=== PATIENT | female | born 1990 | race Caucasian/White ===

== ENCOUNTER 2017-07-29 21:00 | Inpatient (IN) | payer OTHER ==
[2017-07-29 23:37] LABS: ADD MAN DIFF? NO
[2017-07-29 23:40] LABS: WHITE BLOOD COUNT 9.7 10^3/ul (4.8-10.8)
[2017-07-29 23:40] LABS: BASOPHILS % 0.2 % (0.0-2.0); EOSINOPHILS # 0.1 10^3/ul (0.0-0.5); EOSINOPHILS % 0.8 % (0.0-7.0); HEMATOCRIT 36.5 % (37.0-47.0); HEMOGLOBIN 11.5 g/dl (12.0-16.0); LYMPHOCYTES # 2.7 10^3/ul (0.8-2.9); LYMPHOCYTES % 28.1 % (15.0-51.0); MEAN CORPUSCULAR HEMOGLOBIN 26.5 pg (29.0-33.0); MEAN CORPUSCULAR HGB CONC 31.5 g/dl (32.0-37.0); MEAN CORPUSCULAR VOLUME 84.1 fl (82.0-101.0); MEAN PLATELET VOLUME 10.5 fl (7.4-10.4); MONOCYTE # 0.5 10^3/ul (0.3-0.9); NEUTROPHIL # 6.3 10^3/ul (1.6-7.5); NEUTROPHILS % 65.2 % (39.0-77.0); PLATELET COUNT 325 10^3/UL (140-415); RED BLOOD COUNT 4.34 10^6/ul (4.20-5.40)
[2017-07-30 00:07] LABS: ADD UMIC YES; UR ASCORBIC ACID NEGATIVE (NEGATIVE); UR BACTERIA FEW /HPF (NONE SEEN); UR BILIRUBIN (Dip) NEGATIVE (NEGATIVE); UR BLOOD (Dip) 2+ mg/dL (NEGATIVE); UR CLARITY CLEAR (CLEAR); UR COLOR STRAW (YELLOW); UR GLUCOSE (Dip) NEGATIVE (NEGATIVE); UR KETONES (Dip) NEGATIVE (NEGATIVE); UR LEUKOCYTE ESTERASE (Dip) 2+ Leu/ul (NEGATIVE); UR NITRITE (Dip) NEGATIVE (NEGATIVE); UR RBC 0 /HPF (0-5); UR SPECIFIC GRAVITY (Dip) 1.004 (1.003-1.030); UR TOTAL PROTEIN (Dip) NEGATIVE (NEGATIVE); UR UROBILINOGEN (Dip) NEGATIVE (NEGATIVE); UR WBC 9 /HPF (0-5)
[2017-07-30] MEDS ORDERED: LACTATED RINGER'S 1,000 ML IV (00:50)
[2017-07-30] MEDS ORDERED: ACETAMINOPHEN 325 MG TAB PO (01:00)
[2017-07-30] MEDS: LACTATED RINGER'S 500 ML IV ×6 (03:00→21:00)
[2017-07-30] MEDS: BETAMET NA PHOS/AC(6 MG/ML) 5ML INJ IM (11:06)
[2017-07-30] MEDS: PRENATAL VITAMIN PO (11:08)
[2017-07-30] MEDS: CHOLECALCIFEROL 2,000 UNIT CAP PO (12:40)
[2017-07-30] MEDS: CALCIUM CARBONATE 500 MG CHEW TAB PO ×2 (12:41→21:13)
[2017-07-30] MEDS: DOCUSATE SODIUM 100 MG CAP PO (12:42)
[2017-07-30 13:18] LABS: ALANINE AMINOTRANSFERASE 35 IU/L (13-69); ALBUMIN 3.3 g/dl (3.3-4.9); ALKALINE PHOSPHATASE 168 IU/L (42-121); ANION GAP 17 (8-16); ASPARTATE AMINO TRANSFERASE 30 IU/L (15-46); BILIRUBIN,INDIRECT 0.3 mg/dl (0-1.1); BILIRUBIN,TOTAL 0.3 mg/dl (0.2-1.3); BLOOD UREA NITROGEN 11 mg/dl (7-20); CALCIUM 7.5 mg/dl (8.4-10.2); CARBON DIOXIDE 15 mmol/L (21-31); CHLORIDE 112 mmol/L (97-110); CREATININE 0.86 mg/dl (0.44-1.00); GLUCOSE 76 mg/dl (70-220); SODIUM 141 mmol/L (135-144); TOTAL PROTEIN 6.3 g/dl (6.1-8.1)
[2017-07-30 13:19] LABS: POTASSIUM 2.6 mmol/L (3.5-5.1)
[2017-07-30] MEDS: POTASSIUM CHLORIDE (SR) 20 MEQ TAB PO ×2 (13:47→21:15)
[2017-07-30] MEDS: MAGNESIUM OXIDE 400 MG TAB PO (13:51)
[2017-07-30] MEDS: POTASSIUM CITRATE (SR) 5 MEQ TAB PO ×2 (13:51→17:40)
[2017-07-30 15:33] LABS: RUPTURE FETAL MEMBRANES NEGATIVE (NEGATIVE)
[2017-07-30] MEDS: FERROUS SULFATE (EC) 325 MG TAB PO (17:40)
[2017-07-31] MEDS: LACTATED RINGER'S 500 ML IV ×7 (01:10→19:39)
[2017-07-31] MEDS: PRENATAL VITAMIN PO (09:06)
[2017-07-31] MEDS: FERROUS SULFATE (EC) 325 MG TAB PO (09:06)
[2017-07-31] MEDS: DOCUSATE SODIUM 100 MG CAP PO (09:07)
[2017-07-31] MEDS: POTASSIUM CITRATE (SR) 5 MEQ TAB PO ×2 (09:07→17:30)
[2017-07-31] MEDS: MAGNESIUM OXIDE 400 MG TAB PO (09:45)
[2017-07-31] MEDS: CALCIUM CARBONATE 500 MG CHEW TAB PO (09:45)
[2017-07-31] MEDS: CHOLECALCIFEROL 2,000 UNIT CAP PO (09:46)
[2017-07-31] MEDS: POTASSIUM CHLORIDE (SR) 20 MEQ TAB PO ×3 (09:46→20:59)
[2017-07-31] MEDS: BETAMET NA PHOS/AC(6 MG/ML) 5ML INJ IM (10:49)
[2017-07-31] MEDS: LACTATED RINGER'S 1,000 ML IV ×2 (12:36→23:37)
[2017-07-31 13:49] LABS: ADD MAN DIFF? NO
[2017-07-31 13:58] LABS: WHITE BLOOD COUNT 13.1 10^3/ul (4.8-10.8)
[2017-07-31 13:58] LABS: BASOPHILS % 0.2 % (0.0-2.0); EOSINOPHILS % 0.1 % (0.0-7.0); HEMATOCRIT 35.3 % (37.0-47.0); HEMOGLOBIN 10.9 g/dl (12.0-16.0); LYMPHOCYTES # 1.4 10^3/ul (0.8-2.9); LYMPHOCYTES % 10.8 % (15.0-51.0); MEAN CORPUSCULAR HEMOGLOBIN 26.5 pg (29.0-33.0); MEAN CORPUSCULAR HGB CONC 30.9 g/dl (32.0-37.0); MEAN CORPUSCULAR VOLUME 85.7 fl (82.0-101.0); MEAN PLATELET VOLUME 11.1 fl (7.4-10.4); MONOCYTE # 0.4 10^3/ul (0.3-0.9); MONOCYTES % 2.8 % (0.0-11.0); NEUTROPHIL # 11.1 10^3/ul (1.6-7.5); NEUTROPHILS % 84.4 % (39.0-77.0); PLATELET COUNT 304 10^3/UL (140-415); RED BLOOD COUNT 4.12 10^6/ul (4.20-5.40)
[2017-07-31 14:13] LABS: INR 0.84; PROTIME 11.6 Sec (11.9-14.9); PT RATIO 0.9
[2017-07-31 14:14] LABS: ALANINE AMINOTRANSFERASE 31 IU/L (13-69); ALBUMIN 3.1 g/dl (3.3-4.9); ALBUMIN/GLOBULIN RATIO 1.06; ALKALINE PHOSPHATASE 171 IU/L (42-121); ANION GAP 15 (8-16); ASPARTATE AMINO TRANSFERASE 17 IU/L (15-46); BLOOD UREA NITROGEN 11 mg/dl (7-20); CALCIUM 7.8 mg/dl (8.4-10.2); CARBON DIOXIDE 18 mmol/L (21-31); CHLORIDE 113 mmol/L (97-110); CREATININE 0.79 mg/dl (0.44-1.00); GLUCOSE 90 mg/dl (70-220); PARTIAL THROMBOPLASTIN TIME 29.7 Sec (25.0-35.0); POTASSIUM 3.4 mmol/L (3.5-5.1); SODIUM 143 mmol/L (135-144)
[2017-07-31 18:37] LABS: RAPID PLASMA REAGIN NONREACTIVE (NR)
[2017-07-31] MEDS ORDERED: CALCIUM GLUCONATE 10% 1 GM in DEXTROSE 5% 100 ML IVPB (19:00)
[2017-07-31] MEDS: CALCIUM CARBONATE 1.25 GM TAB PO (21:26)
[2017-08-01 00:28] LABS: ADD UMIC YES; UR ASCORBIC ACID NEGATIVE (NEGATIVE); UR BILIRUBIN (Dip) NEGATIVE (NEGATIVE); UR BLOOD (Dip) NEGATIVE (NEGATIVE); UR CLARITY CLEAR (CLEAR); UR COLOR STRAW (YELLOW); UR GLUCOSE (Dip) NEGATIVE (NEGATIVE); UR KETONES (Dip) NEGATIVE (NEGATIVE); UR LEUKOCYTE ESTERASE (Dip) 2+ Leu/ul (NEGATIVE); UR NITRITE (Dip) NEGATIVE (NEGATIVE); UR RBC 0 /HPF (0-5); UR SPECIFIC GRAVITY (Dip) 1.005 (1.003-1.030); UR TOTAL PROTEIN (Dip) NEGATIVE (NEGATIVE); UR UROBILINOGEN (Dip) NEGATIVE (NEGATIVE); UR WBC 3 /HPF (0-5)
[2017-08-01 01:55] LABS: POTASSIUM,URINE RANDOM 63.5 mmol/L (25-125)
[2017-08-01 01:55] LABS: SODIUM,URINE RANDOM 71 mmol/L (30-90)
[2017-08-01] MEDS: LACTATED RINGER'S 1,000 ML IV ×2 (06:17→18:04)
[2017-08-01] MEDS: MAGNESIUM OXIDE 400 MG TAB PO ×2 (08:53→21:12)
[2017-08-01] MEDS: CHOLECALCIFEROL 2,000 UNIT CAP PO (08:54)
[2017-08-01] MEDS: POTASSIUM CHLORIDE (SR) 20 MEQ TAB PO ×3 (08:54→21:11)
[2017-08-01] MEDS: CALCIUM CARBONATE 1.25 GM TAB PO (08:54)
[2017-08-01] MEDS: PRENATAL VITAMIN PO (08:55)
[2017-08-01] MEDS: FERROUS SULFATE (EC) 325 MG TAB PO (08:55)
[2017-08-01] MEDS: POTASSIUM CITRATE (SR) 5 MEQ TAB PO ×2 (08:56→18:30)
[2017-08-01] MEDS: DOCUSATE SODIUM 100 MG CAP PO (09:00)
[2017-08-01 09:04] LABS: ADD MAN DIFF? NO
[2017-08-01 09:19] LABS: BASOPHILS % 0.2 % (0.0-2.0); EOSINOPHILS % 0.1 % (0.0-7.0); HEMATOCRIT 31.7 % (37.0-47.0); HEMOGLOBIN 9.6 g/dl (12.0-16.0); LYMPHOCYTES # 2.9 10^3/ul (0.8-2.9); LYMPHOCYTES % 17.1 % (15.0-51.0); MEAN CORPUSCULAR HEMOGLOBIN 26.3 pg (29.0-33.0); MEAN CORPUSCULAR HGB CONC 30.3 g/dl (32.0-37.0); MEAN CORPUSCULAR VOLUME 86.8 fl (82.0-101.0); MEAN PLATELET VOLUME 11.4 fl (7.4-10.4); MONOCYTE # 0.9 10^3/ul (0.3-0.9); MONOCYTES % 5.2 % (0.0-11.0); NEUTROPHIL # 12.9 10^3/ul (1.6-7.5); NEUTROPHILS % 75.4 % (39.0-77.0); PLATELET COUNT 304 10^3/UL (140-415); RED BLOOD COUNT 3.65 10^6/ul (4.20-5.40); RED CELL DISTRIBUTION WIDTH 17.2 % (11.5-14.5)
[2017-08-01 09:19] LABS: WHITE BLOOD COUNT 17.1 10^3/ul (4.8-10.8)
[2017-08-01 09:52] LABS: ANION GAP 14 (8-16); BLOOD UREA NITROGEN 9 mg/dl (7-20); CALCIUM 7.2 mg/dl (8.4-10.2); CARBON DIOXIDE 24 mmol/L (21-31); CHLORIDE 109 mmol/L (97-110); CREATININE 0.73 mg/dl (0.44-1.00); GLUCOSE 78 mg/dl (70-220); POTASSIUM 3.3 mmol/L (3.5-5.1); SODIUM 144 mmol/L (135-144)
[2017-08-01 09:55] LABS: MAGNESIUM 1.4 mg/dl (1.7-2.5)
[2017-08-01] MEDS: MAGNESIUM SULFATE 4 GM/100 ML 100 ML IVPB (11:33)
[2017-08-01] MEDS: CALCIUM GLUCONATE 10% 1 GM in DEXTROSE 5% 100 ML IVPB (12:50)
[2017-08-01] MEDS: CALCIUM CARBONATE 500 MG CHEW TAB PO ×2 (14:01→21:12)
[2017-08-02] MEDS: LACTATED RINGER'S 1,000 ML IV (07:36)
[2017-08-02] MEDS: POTASSIUM CITRATE (SR) 5 MEQ TAB PO ×2 (07:43→17:31)
[2017-08-02] MEDS: CALCIUM CARBONATE 500 MG CHEW TAB PO ×2 (08:56→21:16)
[2017-08-02] MEDS: MAGNESIUM OXIDE 400 MG TAB PO ×2 (08:56→21:16)
[2017-08-02] MEDS: FERROUS SULFATE (EC) 325 MG TAB PO (08:57)
[2017-08-02] MEDS: CHOLECALCIFEROL 2,000 UNIT CAP PO (08:57)
[2017-08-02] MEDS: CALCIUM CARBONATE 1.25 GM TAB PO (08:57)
[2017-08-02] MEDS: DOCUSATE SODIUM 100 MG CAP PO (08:57)
[2017-08-02] MEDS: PRENATAL VITAMIN PO (08:57)
[2017-08-02] MEDS: POTASSIUM CHLORIDE (SR) 20 MEQ TAB PO ×2 (08:57→12:34)
[2017-08-02 09:41] LABS: ADD MAN DIFF? NO
[2017-08-02 09:43] LABS: WHITE BLOOD COUNT 14.1 10^3/ul (4.8-10.8)
[2017-08-02 09:43] LABS: BASOPHILS % 0.1 % (0.0-2.0); EOSINOPHILS # 0.1 10^3/ul (0.0-0.5); EOSINOPHILS % 0.6 % (0.0-7.0); HEMATOCRIT 33.7 % (37.0-47.0); HEMOGLOBIN 10.2 g/dl (12.0-16.0); LYMPHOCYTES # 2.6 10^3/ul (0.8-2.9); LYMPHOCYTES % 18.1 % (15.0-51.0); MEAN CORPUSCULAR HEMOGLOBIN 26.5 pg (29.0-33.0); MEAN CORPUSCULAR HGB CONC 30.3 g/dl (32.0-37.0); MEAN CORPUSCULAR VOLUME 87.5 fl (82.0-101.0); MEAN PLATELET VOLUME 11.3 fl (7.4-10.4); MONOCYTE # 0.7 10^3/ul (0.3-0.9); MONOCYTES % 4.6 % (0.0-11.0); NEUTROPHIL # 10.3 10^3/ul (1.6-7.5); NEUTROPHILS % 73.3 % (39.0-77.0); NUCLEATED RED BLOOD CELLS% 0.1 /100WBC (0.0-0.0); PLATELET COUNT 313 10^3/UL (140-415); RED BLOOD COUNT 3.85 10^6/ul (4.20-5.40); RED CELL DISTRIBUTION WIDTH 16.7 % (11.5-14.5)
[2017-08-02 10:28] LABS: PHOSPHORUS 3.3 mg/dl (2.5-4.9)
[2017-08-02 10:28] LABS: ANION GAP 13 (8-16); BLOOD UREA NITROGEN 15 mg/dl (7-20); CALCIUM 7.2 mg/dl (8.4-10.2); CARBON DIOXIDE 26 mmol/L (21-31); CHLORIDE 104 mmol/L (97-110); CREATININE 0.68 mg/dl (0.44-1.00); GLUCOSE 80 mg/dl (70-220); MAGNESIUM 1.6 mg/dl (1.7-2.5); POTASSIUM 4.7 mmol/L (3.5-5.1); SODIUM 138 mmol/L (135-144)
[2017-08-02] MEDS: MAGNESIUM SULFATE 3 GM in DEXTROSE 5% 100 ML IVPB (15:51)
[2017-08-02] MEDS ORDERED: POTASSIUM CHLORIDE (SR) 20 MEQ TAB PO (21:00)
[2017-08-03] MEDS: PRENATAL VITAMIN PO (09:00)
[2017-08-03] MEDS: DOCUSATE SODIUM 100 MG CAP PO (09:26)
[2017-08-03] MEDS: POTASSIUM CITRATE (SR) 5 MEQ TAB PO ×2 (09:26→17:54)
[2017-08-03] MEDS: FERROUS SULFATE (EC) 325 MG TAB PO (09:26)
[2017-08-03] MEDS: CALCIUM CARBONATE 1.25 GM TAB PO (09:27)
[2017-08-03] MEDS: CHOLECALCIFEROL 2,000 UNIT CAP PO (09:28)
[2017-08-03] MEDS: CALCIUM CARBONATE 500 MG CHEW TAB PO ×2 (09:28→20:56)
[2017-08-03] MEDS: MAGNESIUM OXIDE 400 MG TAB PO ×2 (09:39→21:24)
[2017-08-03 11:12] LABS: POTASSIUM 3.6 mmol/L (3.5-5.1)
[2017-08-03 11:12] LABS: MAGNESIUM 1.8 mg/dl (1.7-2.5); PHOSPHORUS 4.3 mg/dl (2.5-4.9)
[2017-08-03] MEDS: POTASSIUM CHLORIDE (SR) 20 MEQ TAB PO (20:57)
[2017-08-04 07:18] LABS: MAGNESIUM 1.8 mg/dl (1.7-2.5)
[2017-08-04 07:18] LABS: POTASSIUM 3.9 mmol/L (3.5-5.1)
[2017-08-04] MEDS: POTASSIUM CITRATE (SR) 5 MEQ TAB PO ×2 (07:44→17:41)
[2017-08-04] MEDS: PRENATAL VITAMIN PO (08:49)
[2017-08-04] MEDS: FERROUS SULFATE (EC) 325 MG TAB PO (08:49)
[2017-08-04] MEDS: MAGNESIUM OXIDE 400 MG TAB PO ×2 (08:49→21:21)
[2017-08-04] MEDS: DOCUSATE SODIUM 100 MG CAP PO (08:49)
[2017-08-04] MEDS: CALCIUM CARBONATE 500 MG CHEW TAB PO ×2 (08:49→21:20)
[2017-08-04] MEDS: CALCIUM CARBONATE 1.25 GM TAB PO (08:49)
[2017-08-04] MEDS: CHOLECALCIFEROL 2,000 UNIT CAP PO (08:49)
[2017-08-04] MEDS: POTASSIUM CHLORIDE (SR) 20 MEQ TAB PO ×3 (08:50→21:20)
[2017-08-04] MEDS ORDERED: DOCUSATE SODIUM 100 MG CAP PO (09:30)
[2017-08-04 09:40] LABS: ALANINE AMINOTRANSFERASE 32 IU/L (13-69); ALBUMIN 2.8 g/dl (3.3-4.9); ALBUMIN/GLOBULIN RATIO 0.93; ALKALINE PHOSPHATASE 126 IU/L (42-121); ANION GAP 10 (8-16); ASPARTATE AMINO TRANSFERASE 24 IU/L (15-46); BLOOD UREA NITROGEN 15 mg/dl (7-20); CALCIUM 6.4 mg/dl (8.4-10.2); CARBON DIOXIDE 29 mmol/L (21-31); CHLORIDE 104 mmol/L (97-110); CREATININE 0.69 mg/dl (0.44-1.00); GLUCOSE 80 mg/dl (70-220); POTASSIUM 3.9 mmol/L (3.5-5.1); SODIUM 139 mmol/L (135-144); TOTAL PROTEIN 5.8 g/dl (6.1-8.1)
[2017-08-04] MEDS: ACETAMINOPHEN 500 MG TAB PO (09:47)
[2017-08-04 10:55] LABS: ERYTHROCYTE SEDIMENTATION RATE 49 mm/Hr (0-20)
[2017-08-04 12:19] LABS: CK-MB 0.66 ng/ml (0.0-2.4)
[2017-08-04] MEDS: CALCITRIOL 0.25 MCG CAP PO (12:31)
[2017-08-04] MEDS: CALCIUM GLUCONATE 10% 2 GM in DEXTROSE 5% 100 ML IVPB (13:53)
[2017-08-04] MEDS ORDERED: CALCIUM GLUCONATE 10% 2 GM in DEXTROSE 5% 100 ML IVPB (16:00)
[2017-08-04] MEDS: MAGNESIUM SULFATE 2 GM/50 ML 50 ML IVPB (16:34)
[2017-08-05] MEDS: POTASSIUM CITRATE (SR) 5 MEQ TAB PO ×2 (07:56→17:44)
[2017-08-05 08:08] LABS: ANION GAP 11 (8-16); BLOOD UREA NITROGEN 14 mg/dl (7-20); CALCIUM 7.2 mg/dl (8.4-10.2); CARBON DIOXIDE 27 mmol/L (21-31); CHLORIDE 105 mmol/L (97-110); CREATININE 0.65 mg/dl (0.44-1.00); GLUCOSE 74 mg/dl (70-220); MAGNESIUM 1.8 mg/dl (1.7-2.5); POTASSIUM 4.2 mmol/L (3.5-5.1); SODIUM 139 mmol/L (135-144)
[2017-08-05] MEDS: DOCUSATE SODIUM 100 MG CAP PO (08:49)
[2017-08-05] MEDS: CALCITRIOL 0.25 MCG CAP PO (08:49)
[2017-08-05] MEDS: PRENATAL VITAMIN PO (08:49)
[2017-08-05] MEDS: FERROUS SULFATE (EC) 325 MG TAB PO (08:49)
[2017-08-05] MEDS: CALCIUM CARBONATE 500 MG CHEW TAB PO ×2 (08:49→20:55)
[2017-08-05] MEDS: CHOLECALCIFEROL 2,000 UNIT CAP PO (08:49)
[2017-08-05] MEDS: POTASSIUM CHLORIDE (SR) 20 MEQ TAB PO ×3 (08:50→20:55)
[2017-08-05] MEDS: CALCIUM CARBONATE 1.25 GM TAB PO (08:50)
[2017-08-05] MEDS: MAGNESIUM OXIDE 400 MG TAB PO ×2 (08:53→20:55)
[2017-08-05 13:16] LABS: SODIUM,URINE RANDOM 36 mmol/L (30-90)
[2017-08-05 13:16] LABS: POTASSIUM,URINE RANDOM 34.4 mmol/L (25-125)
[2017-08-06 07:37] LABS: ANION GAP 11 (8-16); BLOOD UREA NITROGEN 14 mg/dl (7-20); CALCIUM 6.5 mg/dl (8.4-10.2); CARBON DIOXIDE 26 mmol/L (21-31); CHLORIDE 104 mmol/L (97-110); CREATININE 0.67 mg/dl (0.44-1.00); GLUCOSE 72 mg/dl (70-220); MAGNESIUM 1.7 mg/dl (1.7-2.5); POTASSIUM 3.8 mmol/L (3.5-5.1); SODIUM 137 mmol/L (135-144)
[2017-08-06] MEDS: MAGNESIUM OXIDE 400 MG TAB PO ×2 (09:41→21:05)
[2017-08-06] MEDS: CHOLECALCIFEROL 2,000 UNIT CAP PO (09:41)
[2017-08-06] MEDS: DOCUSATE SODIUM 100 MG CAP PO (09:43)
[2017-08-06] MEDS: POTASSIUM CHLORIDE (SR) 20 MEQ TAB PO ×3 (09:43→21:05)
[2017-08-06] MEDS: FERROUS SULFATE (EC) 325 MG TAB PO (09:44)
[2017-08-06] MEDS: CALCIUM CARBONATE 1.25 GM TAB PO ×3 (09:45→21:05)
[2017-08-06] MEDS: POTASSIUM CITRATE (SR) 5 MEQ TAB PO ×2 (09:46→18:24)
[2017-08-06] MEDS: CALCIUM CARBONATE 500 MG CHEW TAB PO (09:51)
[2017-08-06] MEDS: PRENATAL VITAMIN PO (09:52)
[2017-08-06] MEDS: CALCITRIOL 0.25 MCG CAP PO ×3 (09:56→21:05)
[2017-08-06 14:17] LABS: ANTI-DNA (DOUBLE STRANDED) <95 U/mL (< 301)
[2017-08-06 18:41] LABS: PTH CALCIUM 7.6 mg/dL (8.6-10.2)
[2017-08-07] MEDS: MAGNESIUM OXIDE 400 MG TAB PO ×2 (08:15→21:08)
[2017-08-07] MEDS: POTASSIUM CHLORIDE (SR) 20 MEQ TAB PO ×3 (08:15→21:08)
[2017-08-07] MEDS: POTASSIUM CITRATE (SR) 5 MEQ TAB PO ×2 (08:15→17:25)
[2017-08-07] MEDS: DOCUSATE SODIUM 100 MG CAP PO (08:16)
[2017-08-07] MEDS: FERROUS SULFATE (EC) 325 MG TAB PO (08:16)
[2017-08-07] MEDS: PRENATAL VITAMIN PO (08:16)
[2017-08-07] MEDS: CALCIUM CARBONATE 1.25 GM TAB PO ×3 (08:16→21:08)
[2017-08-07] MEDS: CALCITRIOL 0.25 MCG CAP PO ×2 (08:19→21:08)
[2017-08-07 08:25] LABS: ALANINE AMINOTRANSFERASE 26 IU/L (13-69); ALBUMIN/GLOBULIN RATIO 1.11; ALKALINE PHOSPHATASE 115 IU/L (42-121); ANION GAP 14 (8-16); ASPARTATE AMINO TRANSFERASE 16 IU/L (15-46); BILIRUBIN,INDIRECT 0.1 mg/dl (0-1.1); BILIRUBIN,TOTAL 0.1 mg/dl (0.2-1.3); BLOOD UREA NITROGEN 14 mg/dl (7-20); CALCIUM 6.9 mg/dl (8.4-10.2); CARBON DIOXIDE 24 mmol/L (21-31); CHLORIDE 104 mmol/L (97-110); CREATININE 0.68 mg/dl (0.44-1.00); GLUCOSE 68 mg/dl (70-220); MAGNESIUM 1.7 mg/dl (1.7-2.5); PHOSPHORUS 4.1 mg/dl (2.5-4.9); POTASSIUM 3.8 mmol/L (3.5-5.1); SODIUM 138 mmol/L (135-144); TOTAL PROTEIN 5.7 g/dl (6.1-8.1)
[2017-08-07 09:42] LABS: PTH INTACT 24 pg/mL (14-64)
[2017-08-07 11:56] LABS: ANA SCREEN NEGATIVE (NEGATIVE)
[2017-08-08] MEDS: MAGNESIUM OXIDE 400 MG TAB PO ×2 (08:01→21:21)
[2017-08-08] MEDS: CALCITRIOL 0.25 MCG CAP PO ×2 (08:02→21:10)
[2017-08-08] MEDS: PRENATAL VITAMIN PO (08:02)
[2017-08-08] MEDS: CALCIUM CARBONATE 1.25 GM TAB PO ×3 (08:02→21:10)
[2017-08-08] MEDS: POTASSIUM CHLORIDE (SR) 20 MEQ TAB PO ×3 (08:05→21:09)
[2017-08-08] MEDS: FERROUS SULFATE (EC) 325 MG TAB PO (08:07)
[2017-08-08] MEDS: DOCUSATE SODIUM 100 MG CAP PO (08:07)
[2017-08-08] MEDS: POTASSIUM CITRATE (SR) 5 MEQ TAB PO ×2 (10:04→18:15)
[2017-08-09] MEDS: CALCITRIOL 0.25 MCG CAP PO ×2 (08:42→22:09)
[2017-08-09] MEDS: POTASSIUM CITRATE (SR) 5 MEQ TAB PO ×2 (08:44→18:47)
[2017-08-09] MEDS: POTASSIUM CHLORIDE (SR) 20 MEQ TAB PO ×3 (08:44→22:09)
[2017-08-09] MEDS: MAGNESIUM OXIDE 400 MG TAB PO (08:45)
[2017-08-09] MEDS: DOCUSATE SODIUM 100 MG CAP PO (08:45)
[2017-08-09] MEDS: FERROUS SULFATE (EC) 325 MG TAB PO (08:45)
[2017-08-09] MEDS: CALCIUM CARBONATE 1.25 GM TAB PO ×3 (08:45→22:10)
[2017-08-09] MEDS: PRENATAL VITAMIN PO (08:46)
[2017-08-09] MEDS ORDERED: MAGNESIUM CHLORIDE (SR) 64 MG TAB PO (14:00)
[2017-08-09 14:55] LABS: ALANINE AMINOTRANSFERASE 24 IU/L (13-69); ALBUMIN 3.2 g/dl (3.3-4.9); ALKALINE PHOSPHATASE 133 IU/L (42-121); ANION GAP 15 (8-16); ASPARTATE AMINO TRANSFERASE 19 IU/L (15-46); BILIRUBIN,INDIRECT 0.1 mg/dl (0-1.1); BILIRUBIN,TOTAL 0.1 mg/dl (0.2-1.3); BLOOD UREA NITROGEN 14 mg/dl (7-20); CARBON DIOXIDE 26 mmol/L (21-31); CHLORIDE 103 mmol/L (97-110); CREATININE 0.78 mg/dl (0.44-1.00); GLUCOSE 91 mg/dl (70-220); POTASSIUM 4.3 mmol/L (3.5-5.1); SODIUM 140 mmol/L (135-144); TOTAL PROTEIN 6.1 g/dl (6.1-8.1)
[2017-08-09 15:36] LABS: ADD UMIC YES; UR ASCORBIC ACID NEGATIVE (NEGATIVE); UR BACTERIA FEW /HPF (NONE SEEN); UR BILIRUBIN (Dip) NEGATIVE (NEGATIVE); UR BLOOD (Dip) NEGATIVE (NEGATIVE); UR CLARITY SLIGHTLY CLOUDY (CLEAR); UR COLOR YELLOW (YELLOW); UR GLUCOSE (Dip) NEGATIVE (NEGATIVE); UR KETONES (Dip) NEGATIVE (NEGATIVE); UR LEUKOCYTE ESTERASE (Dip) 2+ Leu/ul (NEGATIVE); UR NITRITE (Dip) NEGATIVE (NEGATIVE); UR RBC 0 /HPF (0-5); UR SPECIFIC GRAVITY (Dip) 1.005 (1.003-1.030); UR SQUAMOUS EPITHELIAL CELL FEW /HPF (FEW); UR TOTAL PROTEIN (Dip) NEGATIVE (NEGATIVE); UR UROBILINOGEN (Dip) NEGATIVE (NEGATIVE); UR WBC 17 /HPF (0-5)
[2017-08-09] MEDS: MAGNESIUM CHLORIDE (SR) 64 MG TAB PO (22:09)
[2017-08-10] MEDS: CALCIUM CARBONATE 1.25 GM TAB PO ×3 (08:45→21:15)
[2017-08-10] MEDS: PRENATAL VITAMIN PO (08:45)
[2017-08-10] MEDS: DOCUSATE SODIUM 100 MG CAP PO (08:45)
[2017-08-10] MEDS: FERROUS SULFATE (EC) 325 MG TAB PO (08:45)
[2017-08-10] MEDS: POTASSIUM CHLORIDE (SR) 20 MEQ TAB PO ×3 (08:46→21:15)
[2017-08-10] MEDS: CALCITRIOL 0.25 MCG CAP PO ×2 (08:47→21:16)
[2017-08-10] MEDS: POTASSIUM CITRATE (SR) 5 MEQ TAB PO ×2 (08:47→17:45)
[2017-08-10] MEDS: MAGNESIUM CHLORIDE (SR) 64 MG TAB PO ×2 (08:48→21:15)
[2017-08-11] MEDS: POTASSIUM CITRATE (SR) 5 MEQ TAB PO ×2 (08:49→18:24)
[2017-08-11 08:50] LABS: ADD MAN DIFF? NO
[2017-08-11] MEDS: FERROUS SULFATE (EC) 325 MG TAB PO (08:50)
[2017-08-11] MEDS: DOCUSATE SODIUM 100 MG CAP PO (08:50)
[2017-08-11] MEDS: POTASSIUM CHLORIDE (SR) 20 MEQ TAB PO ×3 (08:50→21:16)
[2017-08-11] MEDS: CALCIUM CARBONATE 1.25 GM TAB PO ×3 (08:51→21:16)
[2017-08-11] MEDS: MAGNESIUM CHLORIDE (SR) 64 MG TAB PO ×2 (08:51→21:16)
[2017-08-11] MEDS: PRENATAL VITAMIN PO (08:51)
[2017-08-11] MEDS: CALCITRIOL 0.25 MCG CAP PO ×2 (08:51→21:16)
[2017-08-11 08:54] LABS: ABNORMAL IP MESSAGE 1; BASOPHIL # 0.1 10^3/ul (0.0-0.1); BASOPHILS % 0.6 % (0.0-2.0); EOSINOPHILS # 0.2 10^3/ul (0.0-0.5); HEMATOCRIT 30.7 % (37.0-47.0); HEMOGLOBIN 9.2 g/dl (12.0-16.0); LYMPHOCYTES # 2.5 10^3/ul (0.8-2.9); LYMPHOCYTES % 17.4 % (15.0-51.0); MEAN CORPUSCULAR HEMOGLOBIN 26.8 pg (29.0-33.0); MEAN CORPUSCULAR VOLUME 89.5 fl (82.0-101.0); MEAN PLATELET VOLUME 10.8 fl (7.4-10.4); MONOCYTE # 0.8 10^3/ul (0.3-0.9); MONOCYTES % 5.4 % (0.0-11.0); NEUTROPHILS % 68.8 % (39.0-77.0); NUCLEATED RED BLOOD CELLS # 0.1 10^3/ul (0.0-0.0); NUCLEATED RED BLOOD CELLS% 0.8 /100WBC (0.0-0.0); PLATELET COUNT 322 10^3/UL (140-415); RED BLOOD COUNT 3.43 10^6/ul (4.20-5.40); RED CELL DISTRIBUTION WIDTH 17.2 % (11.5-14.5)
[2017-08-11 08:54] LABS: WHITE BLOOD COUNT 14.6 10^3/ul (4.8-10.8)
[2017-08-11 08:59] LABS: POSITIVE DIFF @See below
[2017-08-11 16:08] LABS: RHEUMATOID FACTOR NEGATIVE (NEGATIVE)
[2017-08-12] MEDS: PRENATAL VITAMIN PO (08:56)
[2017-08-12] MEDS: CALCITRIOL 0.25 MCG CAP PO (08:56)
[2017-08-12] MEDS: MAGNESIUM CHLORIDE (SR) 64 MG TAB PO (08:56)
[2017-08-12] MEDS: CALCIUM CARBONATE 1.25 GM TAB PO (08:57)
[2017-08-12] MEDS: POTASSIUM CHLORIDE (SR) 20 MEQ TAB PO ×2 (08:57→13:57)
[2017-08-12] MEDS: DOCUSATE SODIUM 100 MG CAP PO (08:57)
[2017-08-12] MEDS: POTASSIUM CITRATE (SR) 5 MEQ TAB PO (08:57)
[2017-08-12] MEDS: FERROUS SULFATE (EC) 325 MG TAB PO (08:58)
[2017-08-12] MEDS ORDERED: AMPICILLIN 2 GM/NS (PMX) 100 ML (13:09)
[2017-08-12] MEDS: LACTATED RINGER'S 1,000 ML IV (13:57)
[2017-08-12 14:00] LABS: ADD MAN DIFF? NO
[2017-08-12] MEDS ORDERED: CARBOPROST 250 MCG INJ IM ×2 (14:00→18:30)
[2017-08-12] MEDS ORDERED: MISOPROSTOL 200 MCG TAB PR ×2 (14:00→18:30)
[2017-08-12] MEDS ORDERED: OXYTOCIN 30 UNITS/LR 500 ML IV ×2 (14:00→18:30)
[2017-08-12] MEDS ORDERED: LIDOCAINE 1% (MPF) 30 ML INJ INJ (14:00)
[2017-08-12] MEDS ORDERED: METHYLERGONOVINE 0.2 MG INJ IM ×2 (14:00→18:30)
[2017-08-12 14:05] LABS: ABNORMAL IP MESSAGE 1; BASOPHIL # 0.1 10^3/ul (0.0-0.1); BASOPHILS % 0.5 % (0.0-2.0); EOSINOPHILS # 0.1 10^3/ul (0.0-0.5); HEMATOCRIT 32.7 % (37.0-47.0); HEMOGLOBIN 9.8 g/dl (12.0-16.0); LYMPHOCYTES # 2.2 10^3/ul (0.8-2.9); LYMPHOCYTES % 18.8 % (15.0-51.0); MEAN CORPUSCULAR HEMOGLOBIN 26.8 pg (29.0-33.0); MEAN CORPUSCULAR VOLUME 89.6 fl (82.0-101.0); MEAN PLATELET VOLUME 10.5 fl (7.4-10.4); MONOCYTE # 0.6 10^3/ul (0.3-0.9); NEUTROPHIL # 8.1 10^3/ul (1.6-7.5); NEUTROPHILS % 69.2 % (39.0-77.0); NUCLEATED RED BLOOD CELLS # 0.1 10^3/ul (0.0-0.0); NUCLEATED RED BLOOD CELLS% 0.7 /100WBC (0.0-0.0); PLATELET COUNT 309 10^3/UL (140-415); RED BLOOD COUNT 3.65 10^6/ul (4.20-5.40); RED CELL DISTRIBUTION WIDTH 17.4 % (11.5-14.5)
[2017-08-12 14:05] LABS: WHITE BLOOD COUNT 11.7 10^3/ul (4.8-10.8)
[2017-08-12] MEDS: AMPICILLIN 2 GM/NS (PMX) 100 ML IV (14:09)
[2017-08-12 14:24] LABS: POSITIVE DIFF @See below
[2017-08-12 14:25] LABS: INR 0.85; PROTIME 11.7 Sec (11.9-14.9); PT RATIO 0.9
[2017-08-12 14:26] LABS: PARTIAL THROMBOPLASTIN TIME 33.7 Sec (25.0-35.0)
[2017-08-12] MEDS: IBUPROFEN 600 MG TAB PO (15:48)
[2017-08-12] MEDS: HYDROCODONE/APAP (5/325) TAB PO (15:56)
[2017-08-12] MEDS: OXYTOCIN 30 UNITS/LR 500 ML IV ×3 (16:12→22:05)
[2017-08-12] MEDS ORDERED: AMPICILLIN 1 GM/NS (PMX) 50 ML IV (18:00)
[2017-08-12] MEDS ORDERED: HYDROmorphONE 2 MG/ML SYG IM (18:03)
[2017-08-12] MEDS ORDERED: HYDROmorphONE 2 MG/ML SYG (18:13)
[2017-08-12] MEDS ORDERED: DIBUCAINE 1% 30 GM OINT PR (18:30)
[2017-08-12] MEDS ORDERED: BENZOCAINE 20% 56 ML SPRAY TOP (18:30)
[2017-08-12] MEDS ORDERED: WITCH HAZEL/GLYCERIN PAD PR (18:30)
[2017-08-12] MEDS ORDERED: ACETAMINOPHEN 500 MG TAB PO (18:30)
[2017-08-12] MEDS: HYDROmorphONE 2 MG/ML SYG IM (18:32)
[2017-08-12] MEDS: SENNA/DOCUSATE NA (8.6MG/50MG) TAB PO (21:25)
[2017-08-12 22:30] LABS: RAPID PLASMA REAGIN NONREACTIVE (NR)
[2017-08-13] MEDS: IBUPROFEN 600 MG TAB PO ×2 (00:31→05:33)
[2017-08-13] MEDS ORDERED: EPHEDrine SULFATE 50 MG/5 ML SYG (07:00)
[2017-08-13 10:56] LABS: ADD MAN DIFF? NO
[2017-08-13 11:04] LABS: WHITE BLOOD COUNT 11.4 10^3/ul (4.8-10.8)
[2017-08-13 11:04] LABS: BASOPHIL # 0.1 10^3/ul (0.0-0.1); BASOPHILS % 0.4 % (0.0-2.0); EOSINOPHILS # 0.1 10^3/ul (0.0-0.5); EOSINOPHILS % 1.1 % (0.0-7.0); HEMOGLOBIN 9.4 g/dl (12.0-16.0); LYMPHOCYTES # 2.7 10^3/ul (0.8-2.9); LYMPHOCYTES % 23.5 % (15.0-51.0); MEAN CORPUSCULAR HEMOGLOBIN 26.7 pg (29.0-33.0); MEAN CORPUSCULAR HGB CONC 29.4 g/dl (32.0-37.0); MEAN CORPUSCULAR VOLUME 90.9 fl (82.0-101.0); MONOCYTE # 0.6 10^3/ul (0.3-0.9); MONOCYTES % 5.3 % (0.0-11.0); NEUTROPHIL # 7.4 10^3/ul (1.6-7.5); NEUTROPHILS % 65.3 % (39.0-77.0); NUCLEATED RED BLOOD CELLS% 0.4 /100WBC (0.0-0.0); PLATELET COUNT 295 10^3/UL (140-415); RED BLOOD COUNT 3.52 10^6/ul (4.20-5.40); RED CELL DISTRIBUTION WIDTH 17.4 % (11.5-14.5)
[2017-08-13 11:26] LABS: ALANINE AMINOTRANSFERASE 26 IU/L (13-69); ALBUMIN 3.1 g/dl (3.3-4.9); ALBUMIN/GLOBULIN RATIO 1.03; ALKALINE PHOSPHATASE 116 IU/L (42-121); ANION GAP 14 (8-16); ASPARTATE AMINO TRANSFERASE 23 IU/L (15-46); BILIRUBIN,INDIRECT 0.2 mg/dl (0-1.1); BILIRUBIN,TOTAL 0.2 mg/dl (0.2-1.3); BLOOD UREA NITROGEN 13 mg/dl (7-20); CARBON DIOXIDE 24 mmol/L (21-31); CHLORIDE 104 mmol/L (97-110); CREATININE 0.75 mg/dl (0.44-1.00); GLUCOSE 68 mg/dl (70-220); POTASSIUM 3.2 mmol/L (3.5-5.1); SODIUM 139 mmol/L (135-144); TOTAL PROTEIN 6.1 g/dl (6.1-8.1)
[2017-08-13 11:44] LABS: CALCIUM 5.4 mg/dl (8.4-10.2)
[2017-08-13] MEDS: CALCIUM CARBONATE 1.25 GM TAB PO ×2 (13:00→21:00)
[2017-08-13] MEDS: MAGNESIUM CHLORIDE (SR) 64 MG TAB PO ×2 (13:37→21:00)
[2017-08-13] MEDS: CALCITRIOL 0.25 MCG CAP PO ×2 (13:37→21:00)
[2017-08-13] MEDS: POTASSIUM CHLORIDE (SR) 20 MEQ TAB PO ×2 (13:38→21:00)
[2017-08-13] MEDS: POTASSIUM CITRATE (SR) 5 MEQ TAB PO ×2 (13:39→21:00)
[2017-08-13] MEDS ORDERED: EPHEDrine SULFATE 50 MG/5 ML SYG IV (21:00)
[2017-08-13] MEDS ORDERED: FENTAnyl 50 MCG/ML VIAL IV (21:00)
[2017-08-13] MEDS ORDERED: HYDROmorphONE (0.2 MG/ML) 10ML SYG IV (21:00)
[2017-08-13] MEDS ORDERED: ONDANSETRON 4 MG INJ IV (21:00)
[2017-08-13] MEDS ORDERED: MIDAZOLAM 1 MG/ML 2 ML INJ ×2 (21:08→21:34)
[2017-08-13] MEDS ORDERED: ONDANSETRON 4 MG INJ (21:32)
[2017-08-13] MEDS ORDERED: FAMOTIDINE 20 MG INJ (21:32)
[2017-08-13] MEDS ORDERED: FENTAnyl 50 MCG/ML VIAL ×2 (21:32→22:33)
[2017-08-13] MEDS ORDERED: DEXAMETHASONE 4 MG/ML 1 ML INJ (21:33)
[2017-08-13] MEDS ORDERED: CEFAZOLIN 1 GM INJ (21:37)
[2017-08-13] MEDS ORDERED: PHENYLephrine (100 MCG/ML) 5ML SYG (22:10)
[2017-08-13] MEDS ORDERED: KETOROLAC 30 MG INJ (22:30)
[2017-08-13] MEDS: HYDROmorphONE (0.2 MG/ML) 10ML SYG IV ×3 (23:00→23:18)
[2017-08-13] MEDS: MEPERIDINE 25 MG INJ IV (23:30)
[2017-08-13] MEDS: DIPHENHYDRAMINE 50 MG INJ IV (23:30)
[2017-08-13] MEDS ORDERED: HYDROmorphONE 1 MG/ML SYG IV (23:30)
[2017-08-13] MEDS ORDERED: HYDROmorphONE 2 MG/ML SYG IV (23:30)
[2017-08-14] MEDS: OXYCODONE/ASPIRIN (4.88/325) TAB PO ×4 (02:38→21:11)
[2017-08-14] MEDS: IBUPROFEN 600 MG TAB PO ×2 (05:33→11:46)
[2017-08-14] MEDS: DIPHTH/TET/ACEL PERTUSS (ADULT) 0.5 ML VIAL IM* (09:10)
[2017-08-14] MEDS: POTASSIUM CHLORIDE (SR) 20 MEQ TAB PO ×2 (09:33→21:10)
[2017-08-14] MEDS: POTASSIUM CITRATE (SR) 5 MEQ TAB PO ×2 (09:35→21:09)
[2017-08-14] MEDS: MAGNESIUM CHLORIDE (SR) 64 MG TAB PO ×2 (09:35→21:10)
[2017-08-14] MEDS: CALCITRIOL 0.25 MCG CAP PO ×2 (09:35→21:10)
[2017-08-14] MEDS: CALCIUM CARBONATE 1.25 GM TAB PO ×3 (10:09→21:10)
[2017-08-15] MEDS: OXYCODONE/ASPIRIN (4.88/325) TAB PO (04:51)
[2017-08-15 08:16] LABS: ALANINE AMINOTRANSFERASE 21 IU/L (13-69); ALBUMIN 2.7 g/dl (3.3-4.9); ALKALINE PHOSPHATASE 92 IU/L (42-121); ANION GAP 13 (8-16); ASPARTATE AMINO TRANSFERASE 19 IU/L (15-46); BLOOD UREA NITROGEN 17 mg/dl (7-20); CALCIUM 6.9 mg/dl (8.4-10.2); CARBON DIOXIDE 22 mmol/L (21-31); CHLORIDE 108 mmol/L (97-110); CREATININE 0.94 mg/dl (0.44-1.00); GLUCOSE 60 mg/dl (70-220); POTASSIUM 3.1 mmol/L (3.5-5.1); SODIUM 140 mmol/L (135-144); TOTAL PROTEIN 5.7 g/dl (6.1-8.1)
[2017-08-15] MEDS: CALCITRIOL 0.25 MCG CAP PO (09:16)
[2017-08-15] MEDS: POTASSIUM CHLORIDE (SR) 20 MEQ TAB PO (09:17)
[2017-08-15] MEDS: POTASSIUM CITRATE (SR) 5 MEQ TAB PO (09:17)
[2017-08-15] MEDS: MAGNESIUM CHLORIDE (SR) 64 MG TAB PO (09:17)
[2017-08-15] MEDS: LANOLIN 7 GM TUBE TOP (09:18)
[2017-08-15] MEDS: CALCIUM CARBONATE 1.25 GM TAB PO ×2 (09:18→13:34)
[2017-08-15] MEDS: IBUPROFEN 600 MG TAB PO (12:15)
== END 2017-08-15 15:35 | disposition home or self-care (01) | DRG 767 ==
LOC: OBT 21:00 → L-D 08-12 13:27 → PP1 07-31 21:08 → L-D 07-30 16:39 → PP1 08-12 19:08
PROC: 10E0XZZ Delivery of Products of Conception, External Approach (ICD-10-PCS; principal; 2017-08-13 21:08)
PROC: 0UB70ZZ Excision of Bilateral Fallopian Tubes, Open Approach (ICD-10-PCS; 2017-08-13 21:08)
DX: O41.03X0 Oligohydramnios, third trimester, not applicable or unspecified (principal); E87.2 Acidosis; O26.873 Cervical shortening, third trimester; O60.14X0 Preterm labor third trimester with preterm delivery third trimester, not applicable or unspecified; O26.833 Pregnancy related renal disease, third trimester; E83.51 Hypocalcemia; E83.42 Hypomagnesemia; N25.89 Other disorders resulting from impaired renal tubular function; O99.284 Endocrine, nutritional and metabolic diseases complicating childbirth; O26.853 Spotting complicating pregnancy, third trimester; E87.6 Hypokalemia; R25.2 Cramp and spasm; Z37.0 Single live birth; Z3A.33 33 weeks gestation of pregnancy; Z30.2 Encounter for sterilization
CPT/HCPCS: 76815; 76816; 76817; 76818; 76820; 80048; 80053; 81001; 82436; 82553; 82652; 83605; 83735; 83970; 84100; 84112; 84132; 84133; 84300; 85025; 85610; 85651; 85730; 86038; 86226; 86430; 86592; 86850; 86900; 86901; 87086; 88302; 88307; 90715; 93005; 99464

== ENCOUNTER → 2018-02-23 17:55 | Inpatient (IN) | payer OTHER ==
[2018-02-22] MEDS: SODIUM CHLORIDE 0.9% 1L BAG IV* (06:03)
[2018-02-22 06:05] LABS: ADD MAN DIFF? NO
[2018-02-22] MEDS: LORAZEPAM 2 MG INJ IV (06:07)
[2018-02-22 06:08] LABS: WHITE BLOOD COUNT 6.5 10^3/ul (4.8-10.8)
[2018-02-22 06:08] LABS: BASOPHILS % 0.5 % (0.0-2.0); EOSINOPHILS % 0.3 % (0.0-7.0); HEMATOCRIT 39.4 % (37.0-47.0); HEMOGLOBIN 12.3 g/dl (12.0-16.0); LYMPHOCYTES # 0.9 10^3/ul (0.8-2.9); LYMPHOCYTES % 14.1 % (15.0-51.0); MEAN CORPUSCULAR HEMOGLOBIN 26.2 pg (29.0-33.0); MEAN CORPUSCULAR HGB CONC 31.2 g/dl (32.0-37.0); MEAN PLATELET VOLUME 11.8 fl (7.4-10.4); MONOCYTE # 0.6 10^3/ul (0.3-0.9); MONOCYTES % 8.6 % (0.0-11.0); NEUTROPHILS % 76.2 % (39.0-77.0); PLATELET COUNT 262 10^3/UL (140-415); RED BLOOD COUNT 4.69 10^6/ul (4.20-5.40); RED CELL DISTRIBUTION WIDTH 15.5 % (11.5-14.5)
[2018-02-22 06:32] LABS: INR 1.12; PROTIME 14.6 Sec (11.9-14.9); PT RATIO 1.1
[2018-02-22 06:33] LABS: PARTIAL THROMBOPLASTIN TIME 41.2 Sec (25.0-35.0)
[2018-02-22 06:35] LABS: LACTIC ACID 0.6 mmol/L (0.5-2.0)
[2018-02-22 06:38] LABS: ADD UMIC NO; ALANINE AMINOTRANSFERASE 22 IU/L (13-69); ALBUMIN 3.9 g/dl (3.3-4.9); ALKALINE PHOSPHATASE 117 IU/L (42-121); ANION GAP 10 (8-16); ASPARTATE AMINO TRANSFERASE 24 IU/L (15-46); BLOOD UREA NITROGEN 14 mg/dl (7-20); CALCIUM 7.2 mg/dl (8.4-10.2); CARBON DIOXIDE 16 mmol/L (21-31); CHLORIDE 120 mmol/L (97-110); CREATININE 0.75 mg/dl (0.44-1.00); GLUCOSE 81 mg/dl (70-220); SODIUM 143 mmol/L (135-144); TOTAL PROTEIN 6.5 g/dl (6.1-8.1); UR ASCORBIC ACID NEGATIVE (NEGATIVE); UR BILIRUBIN (Dip) NEGATIVE (NEGATIVE); UR BLOOD (Dip) NEGATIVE (NEGATIVE); UR CLARITY CLEAR (CLEAR); UR COLOR COLORLESS (YELLOW); UR GLUCOSE (Dip) NEGATIVE (NEGATIVE); UR KETONES (Dip) NEGATIVE (NEGATIVE); UR LEUKOCYTE ESTERASE (Dip) NEGATIVE Leu/ul (NEGATIVE); UR NITRITE (Dip) NEGATIVE (NEGATIVE); UR SPECIFIC GRAVITY (Dip) 1.002 (1.003-1.030); UR TOTAL PROTEIN (Dip) NEGATIVE (NEGATIVE); UR UROBILINOGEN (Dip) NEGATIVE (NEGATIVE)
[2018-02-22 06:46] LABS: POTASSIUM 2.5 mmol/L (3.5-5.1); TROPONIN-I < 0.010 ng/ml (0.000-0.120)
[2018-02-22] MEDS: POTASSIUM CHLORIDE 100 ML IVPB (07:34)
[2018-02-22] MEDS: POTASSIUM CHLORIDE (SR) 20 MEQ TAB PO ×2 (07:35→20:52)
[2018-02-22 07:49] LABS: LACTIC ACID 0.6 mmol/L (0.5-2.0); PHOSPHORUS 1.9 mg/dl (2.5-4.9)
[2018-02-22 07:49] LABS: MAGNESIUM 1.7 mg/dl (1.7-2.5)
[2018-02-22 09:31] LABS: LACTIC ACID 0.5 mmol/L (0.5-2.0)
[2018-02-22] MEDS: CALCIUM GLUCONATE 10% 1 GM in DEXTROSE 5% 100 ML IVPB (10:31)
[2018-02-22] MEDS: 1/2 NS + KCL 20 MEQ 1,000 ML IV (16:23)
[2018-02-22] MEDS: POTASSIUM PHOSPHATE 40 MEQ in SOD CHLORIDE 0.9% 250 ML IVPB (16:24)
[2018-02-22] MEDS: MAGNESIUM OXIDE 400 MG TAB PO (20:52)
[2018-02-23] MEDS: 1/2 NS + KCL 20 MEQ 1,000 ML IV ×2 (01:37→10:36)
[2018-02-23 02:06] LABS: ADD MAN DIFF? NO
[2018-02-23 02:11] LABS: BASOPHILS % 0.3 % (0.0-2.0); EOSINOPHILS # 0.2 10^3/ul (0.0-0.5); EOSINOPHILS % 3.5 % (0.0-7.0); HEMATOCRIT 35.8 % (37.0-47.0); HEMOGLOBIN 10.7 g/dl (12.0-16.0); LYMPHOCYTES # 1.7 10^3/ul (0.8-2.9); LYMPHOCYTES % 28.2 % (15.0-51.0); MEAN CORPUSCULAR HEMOGLOBIN 25.3 pg (29.0-33.0); MEAN CORPUSCULAR HGB CONC 29.9 g/dl (32.0-37.0); MEAN CORPUSCULAR VOLUME 84.6 fl (82.0-101.0); MEAN PLATELET VOLUME 11.4 fl (7.4-10.4); MONOCYTE # 0.5 10^3/ul (0.3-0.9); MONOCYTES % 7.8 % (0.0-11.0); NEUTROPHIL # 3.5 10^3/ul (1.6-7.5); NEUTROPHILS % 59.9 % (39.0-77.0); PLATELET COUNT 246 10^3/UL (140-415); RED BLOOD COUNT 4.23 10^6/ul (4.20-5.40); RED CELL DISTRIBUTION WIDTH 15.8 % (11.5-14.5)
[2018-02-23 02:11] LABS: WHITE BLOOD COUNT 5.9 10^3/ul (4.8-10.8)
[2018-02-23 02:41] LABS: CALCIUM 6.8 mg/dl (8.4-10.2); PHOSPHORUS 4.3 mg/dl (2.5-4.9)
[2018-02-23 02:41] LABS: MAGNESIUM 1.3 mg/dl (1.7-2.5)
[2018-02-23 06:33] LABS: ANION GAP 9 (8-16); BLOOD UREA NITROGEN 14 mg/dl (7-20); CALCIUM 6.9 mg/dl (8.4-10.2); CARBON DIOXIDE 15 mmol/L (21-31); CHLORIDE 117 mmol/L (97-110); CREATININE 0.72 mg/dl (0.44-1.00); GLUCOSE 86 mg/dl (70-220); SODIUM 138 mmol/L (135-144)
[2018-02-23] MEDS: CHOLECALCIFEROL 1,000 UNIT TAB PO (10:05)
[2018-02-23] MEDS: POTASSIUM CHLORIDE (SR) 20 MEQ TAB PO ×3 (10:06→18:02)
[2018-02-23] MEDS: MAGNESIUM SULFATE 4 GM/100 ML 100 ML IVPB (12:01)
[~2018-02-23 17:55] MED LIST: ACETAMINOPHEN 325 MG TAB PO; HYDROCODONE/APAP (5/325) TAB PO; MAGNESIUM OXIDE 400 MG TAB PO; NACL 0.9% 3 ML SYG IV; ONDANSETRON 4 MG INJ IV; POTASSIUM CHLORIDE (SR) 10 MEQ TAB PO; [UNRECOGNIZED DRUG - OTHER] PO; morphine 2 MG INJ IV
== END | disposition home or self-care (01) | DRG 641 ==
DX: E87.6 Hypokalemia (principal); E83.51 Hypocalcemia; N25.89 Other disorders resulting from impaired renal tubular function; E86.0 Dehydration; R11.2 Nausea with vomiting, unspecified; E83.42 Hypomagnesemia
CPT/HCPCS: 36415; 71045; 80048; 80053; 81003; 82310; 83605; 83735; 84100; 84484; 85025; 85610; 85730; 87040; 87086; 96361; 96374; 99291-25